=== PATIENT | male | born 1980 ===

== ENCOUNTER → 2020-04-16 | Outpatient (CLI) | payer OTHER ==
[2020-04-16 19:50] LABS: HEMOGLOBIN 16.2 gm/dl (14.0-17.5); RED BLOOD COUNT 4.79 M/UL (4.20-5.50); WHITE BLOOD COUNT 5.6 K/UL (4.5-11.0)
[2020-04-16 19:58] LABS: BUN/CREATININE RATIO 12 (0-10)
== END ==
LOC: LAB 19:30
PROVIDERS: Nurse Practitioner Family
DX: G40.89 Other seizures (principal)
CPT/HCPCS: 80053; 85027